=== PATIENT | female | born 1950 | race Caucasian/White ===

== ENCOUNTER 2018-06-24 11:33 | Emergency (ER) | payer OTHER, MEDICAID ==
[~2018-06-24] VITALS: Ht 160 cm; Wt 79.4 kg
--- NOTE | 2018-06-24 11:50 | NUR ---
R KNEE PAIN SINCE YESTERDAY S/P HEARD "CRACKING" SOUND WHILE GOING DOWN, NO OTHER COMPLAINTS. WILL CONTINUE TO MONITOR.
[2018-06-24] MEDS ORDERED: ACETAMINOPHEN 325 MG TABLET PO ONE (12:00)
[2018-06-24] MEDS ORDERED: KETOROLAC TROMETHAMINE INJ 60 MG/2 ML VIAL IM ONE (12:00)
[2018-06-24] MEDS ORDERED: KETOROLAC TROMETHAMINE 15 MG/ML VIAL ONE (12:06)
[2018-06-24] MEDS ORDERED: ACETAMINOPHEN 325 MG TABLET ONE (12:06)
[2018-06-24] MEDS ORDERED: TRAMADOL HCL 50 MG TABLET PO ONE (13:30)
[2018-06-24] MEDS ORDERED: MORPHINE SULFATE INJ 4 MG/ML DISP.SYRIN IM ONE (13:30)
[2018-06-24] MEDS ORDERED: ONDANSETRON HCL 4 MG/5 ML SOLUTION PO ONE (13:30)
[2018-06-24] MEDS ORDERED: MORPHINE SULFATE INJ 4 MG/ML DISP.SYRIN ONE (13:32)
[2018-06-24] MEDS ORDERED: ONDANSETRON 4 MG TAB.RAPDIS ONE (13:32)
--- NOTE | 2018-06-24 14:30 | NUR ---
Patient discharged to home in stable condition. Written and verbal after care instructions given. Patient verbalizes understanding of instruction.
[2018-06-24 14:52] VITALS: BP 140/70
== END 2018-06-24 14:57 | disposition home or self-care (01) ==
LOC: ER 11:45
DX: M17.11 Unilateral primary osteoarthritis, right knee (principal); J45.909 Unspecified asthma, uncomplicated
CPT/HCPCS: 73564-TC; A4606; J1885; J2270; Q0162; Z7610